=== PATIENT | female | born 2000 | race Two or more races ===

== ENCOUNTER 2024-06-20 18:05 | Outpatient (CLI) | payer MEDICAID, SELFPAY ==
[2024-06-20 18:05] VITALS: BP 98/54; PULSE 72; RESP 16; TEMP 37.1
[2024-06-20 18:16] VITALS: BP 100/56; PULSE 115
[2024-06-20 18:46] VITALS: BP 98/48; PULSE 106
--- NOTE | 2024-06-20 18:58 | XR_ITS ---
Examination: Biophysical profile, ultrasound Date and time of exam: June 20, 2024 1935 hrs. Indications: Diagnosis decreased movement beginning 2 days ago, diagnosis history vaginal discharge and bleeding Technique: Multiple transabdominal sonographic images of the pelvis abdomen obtained. Attention is directed to the breathing movement, gross body movement, amniotic fluid volume and tone. Findings: Amniotic fluid index 16.9 cm Total biophysical profile is 8 of 8. breathing movement is 2. Gross body movement is 2. tone is 2. Qualitative amniotic fluid volume is 2 Impression: Biophysical profile is 8 of 8.
[2024-06-20 19:03] VITALS: BMI 31.8
[2024-06-20 19:16] VITALS: BP 93/50; PULSE 117
[2024-06-20 19:46] VITALS: BP 125/60; PULSE 103
== END 2024-06-20 20:20 | disposition home or self-care (01) ==
LOC: S4S1 18:12 → S4SX 18:15
PROVIDERS: Referring Provider Obstetrics & Gynecology; Visit Provider Obstetrics & Gynecology
DX: O36.8130 Decreased fetal movements, third trimester, not applicable or unspecified (principal); Z3A.35 35 weeks gestation of pregnancy
CPT/HCPCS: 59025; 76819

== ENCOUNTER 2024-07-17 05:40 | Inpatient (IN) | payer MEDICAID, SELFPAY ==
[2024-07-17] VITALS (30 sets, daily range): BP systolic 94–114; BP diastolic 50–81; PULSE 63–91; RESP 12–23; TEMP 36.3–36.9; O2SAT 96–100; BMI 31.0
[2024-07-17] MEDS: RINGERS LACTATED 1000 ML 1,000 ML 100 ML IV (06:15)
[2024-07-17 06:29] LABS: Basophils % (Auto) 1 % (0-2.5); Eosinophils # (Auto) 0.1 Thou/mm3 (0.0-0.5); Eosinophils % (Auto) 2 % (0-10); Hematocrit 28.4 % (36.0-46.0); Hemoglobin 9.1 g/dL (12.0-16.0); Immature Granulocytes % (Auto) 1 % (0-0); Immature Granulocytes Auto 0.04 Thou/mm3 (0.00-0.00); Lymphocytes # (Auto) 2.2 Thou/mm3 (1.0-4.8); Lymphocytes % (Auto) 33 % (10-50); Mean Corpuscular Hemoglobin 26.5 pg (25.0-35.0); Mean Corpuscular Volume 83 fL (80-100); Monocytes # (Auto) 0.4 Thou/mm3 (0.0-0.8); Monocytes % (Auto) 6 % (0-12); Neutrophils # (Auto) 3.9 Thou/mm3 (1.8-7.7); Neutrophils % (Auto) 58 % (37-80); Nucleated Red Blood Cell % 0 /100 WBC (0); Platelet Count 255 Thou/mm3 (140-440); RDW Standard Deviation 51.3 fL (36.4-46.3); Red Blood Count 3.44 Miln/mm3 (4.00-5.20); White Blood Count 6.7 Thou/mm3 (3.6-11.0)
[2024-07-17 06:35] LABS: Amphetamine/Metham Scrn,Ur OB Negative (Negative); Benzoylecgonine Screen, Ur OB Negative (Negative); Opiate Screen,Urine OB Negative (Negative); THC Screen,Urine OB Negative (Negative)
[2024-07-17 07:04] LABS: Syphilis Nonreactive (Nonreactive)
[2024-07-17] MEDS: FAMOTIDINE INJ 10 MG/ML VIAL 2 ML 20 MG IV (07:24)
[2024-07-17] MEDS: ceFAZolin/D5W 2 GM IV 2 GM/100 ML BAG IV (07:24)
[2024-07-17] MEDS: CITRIC ACID/SODIUM CITR 15 ML UDC (BICITRA) 30 ML PO (07:24)
--- NOTE | 2024-07-17 07:32 | PD.LDHP ---
Documentation for date of: 07/17/24 OB Labor/Induct. HPI History of Present Illness : 2 Term pregnancies: 0 pregnancies: 0 Living children: 0 History of Abortions: Spontaneous and Elective: 0 History of sections: No History of : No Date of last menstrual period: 10/11/23 Gestational age based on last menstrual period: 40 History of present illness: 23-year-old 2 para 1-0-0-1 admitted for repeat low-transverse at 39 [id number] . patient denies any contraction, bleeding, leaking. Patient is feeling baby move. Had are with another provider and was seen by me for the last couple of visit. History of Present Dating criteria: LMP confirmed by 2nd trimester US Adequate Care: Yes Labs Labs: Negative: Hepatitis B, HIV, Chlamydia, Gonorrhea and Group Beta Strep Past Medical History Surgical History SURGICAL: Negative Section Meds Home Medications and Allergies Home Medications ?Medication ?Instructions ?Recorded ?Confirmed ?Type vit no.95-ferrous 1 tab PO DAILY 06/28/23 06/20/24 History fumarate 28 mg-folic acid 800 mcg tablet () Allergies Allergy/AdvReac Type Severity Reaction Status Date / Time No Known Allergies Allergy Unknown Unverified 06/20/24 19:06 OB Exam Physical Exam Vital signs: Pulse BP Pulse Ox 88 114/64 100 07/17/24 05:53 07/17/24 05:53 07/17/24 07:09 Constitutional Constitutional: no acute distress Routine HEENT Exam Head: Present normocephalic and atraumatic Eye: Present EOMI and PERRL ENT: Present mucous membranes moist Routine Neck Exam Neck: Present supple and trachea midline Routine Cardiovascular Exam Cardiovascular: Present RRR Routine Abdominal Exam Abdominal: Present soft and normoactive bowel sounds Detailed Labor and Delivery Exam Dilation (cm): Closed Comments: heart tone category 1 Routine Extremities Exam Extremities: Present full ROM Routine Skin Exam Skin: Present intact, dry and warm Routine Neurological Exam Neurological: Present alert, oriented X3 and CN II-XII intact Routine Psychiatric Exam Psychiatric: Present normal affect and normal thought process OB Results Labs 07/17/24 06:07 Labs: Short CBC 07/17/24 Range/Units 06:07 WBC 6.7 (3.6-11.0) Thou/mm3 Hgb 9.1 L (12.0-16.0) g/dL Hct 28.4 L (36.0-46.0) % Plt Count 255 (140-440) Thou/mm3 Impressions Impression: 23-year-old 2 para 1-0-0-1 previous x 1 admitted for repeat low-transverse GTT marcial; Hb 9.1, 2 units on hold anatomy , NIPT wnl OB Assessment & Plan Additional Plan Additional Plan Comment: repeat C section IV antibiotics
--- NOTE | 2024-07-17 08:43 | ESOP_ITS ---
Operative Note - DISTILLATION OPERATOR Procedure Date of procedure: 07/17/24 Procedure Performed: repeat low transverse Csection Indication: previous secvtion x1 anemia Pre-Op diagnosis: same Post-Op diagnosis: same Anesthesia type: Spinal Procedure description: Informed consent was obtained and the patient was taken to the operating room.? Identity was confirmed by double identifiers and she was placed on the operating table.The abdomen and perineum were prepped in the usual sterile fashion and a Cash catheter was placed to continuous drainage.? Sterile drapes were applied.??A Pfannenstiel skin incision was made with a scalpel and carried to the subcutaneous fat up to the rectus fascia.? The rectus fascia was incised on either side of the midline and the incisions were extended bilaterally.? The fascia was gently dissected off the ventral surface of the rectus muscle both superiorly and inferiorly. Carefully a peritioneal window craeted hysterotomy incision made and extended bluntly with finger. Rupture of membranes revealed clear fluid. The baby was found in cephalic position and delivered via vertex. The umbilical cord , was doubly clamped, divided and the was handed over to the waiting team.? placenta delivered by controlled cord traction . The interior of the uterus was now thorougly cleaned of all blood and debris and membranes.?The? hysterotomy was closed using 0 vicryl suture in double layers. Once the repair was completed the hysterotomy was inspected, was noted to be adequately hemostatic . Muscle oozing stopped by bovie. The rectus fascia was repaired using Vicry 0 in a running fashion.? The subcutaneous layer was now, approximated with 3-0 vicryl in double layers.? All bleeding points were cauterized using the Bovie.?The skin was closed using 4-0 Monocryl in a subcuticular fashion.? The skin was cleaned and a sterile dressing was applied. The patient was now undraped, the abdomen and back were thoroughly cleaned and she was now transferred to the recovery room in a stable Estimated blood loss (ml): 400 Surgical staff Operation Date: 07/17/24 07:45 <No data on this case meets the specified criteria> Diagnosis Problem List Completed Was Problem List Reviewed/Reconciled?: Yes
--- NOTE | 2024-07-17 08:53 | OBDSUM_ITS ---
Data (Duran) Data Hx Section: No : 2 Para: 1 Term: 1 : 0 : 0 Delivery Data (Duran) Labor Data ROM Date: 07/17/24 ROM Time: 07:51 Rupture Type: AROM Amniotic Fluid: Clear Delivery Data Labor Onset Stage 1 Date: 07/17/24 Labor Onset Stage 1 Time: 07:51 Labor Onset Stage 2 Date: 07/17/24 Labor Onset Stage 2 Time: 07:51 Delivery Date: 07/17/24 Delivery Time: 07:52 Gestational age (weeks): 39 Gestational age (days): 3 Placenta Delivery Date: 07/17/24 Placenta Delivery Time: 07:52 Delivered by: Marisa Watson Delivery nurse: Deena Wang Other staff at delivery: Nursery Nurse Other staff at delivery: HARDWARE TEST ENGINEER Other staff at delivery: Lip Of Shank Cutter Other staff at delivery: Scrub Other staff at delivery: Lyssa Lee Other staff at delivery: Hasmukh Cristina Other staff at delivery: Dr. Garcia Other staff at delivery: Isauro Dash Delivery Method Delivery: Delivery Type: Repeat Anesthesia Type Primary Anesthesia: Spinal EBL Estimated blood loss (ml): 400 [place] Data (Duran) [place] Data Infant Gender: Male Weight Grams: 4140 1 Minute Total: 9 5 Minute Total: 9
[2024-07-17] MEDS: KETOROLAC INJ 30 MG/ML VIAL IVP ×2 (09:48→20:43)
[2024-07-17 13:32] LABS: Basophils % (Auto) 0 % (0-2.5); Eosinophils % (Auto) 0 % (0-10); Hematocrit 27.7 % (36.0-46.0); Immature Granulocytes % (Auto) 1 % (0-0); Immature Granulocytes Auto 0.12 Thou/mm3 (0.00-0.00); Lymphocytes # (Auto) 0.9 Thou/mm3 (1.0-4.8); Lymphocytes % (Auto) 8 % (10-50); Mean Corpuscular HGB Conc 31.8 g/dl (31.0-37.0); Mean Corpuscular Hemoglobin 26.2 pg (25.0-35.0); Mean Corpuscular Volume 82 fL (80-100); Monocytes # (Auto) 0.2 Thou/mm3 (0.0-0.8); Monocytes % (Auto) 2 % (0-12); Neutrophils # (Auto) 10.8 Thou/mm3 (1.8-7.7); Neutrophils % (Auto) 89 % (37-80); Nucleated Red Blood Cell % 0 /100 WBC (0); Platelet Count 211 Thou/mm3 (140-440); RDW Standard Deviation 50.9 fL (36.4-46.3); Red Blood Count 3.36 Miln/mm3 (4.00-5.20); White Blood Count 12.1 Thou/mm3 (3.6-11.0)
[2024-07-17 13:33] LABS: Hemoglobin 8.8 g/dL (12.0-16.0)
[2024-07-17] MEDS: OXYTOCIN in NS 20 units 20 UNIT/1,000 ML BAG 125 UNIT IV (17:26)
[2024-07-17] MEDS: ACETAMINOPHEN IVPB 1,000 MG/100 ML VIAL 250 MG IV (20:22)
[2024-07-17] MEDS: Milk Of Magnesia Susp 30 ML UDC PO (20:43)
[2024-07-17] MEDS: SIMETHICONE 80 MG CHEW PO (20:43)
--- NOTE | 2024-07-17 21:20 | PD.LDDELS ---
Data (Duran) Data Hx Section: No : 2 Para: 1 Term: 1 : 0 : 0 Delivery Data (Duran) Labor Data ROM Date: 07/17/24 ROM Time: 07:51 Rupture Type: AROM Amniotic Fluid: Clear Delivery Data Labor Onset Stage 1 Date: 07/17/24 Labor Onset Stage 1 Time: 07:51 Labor Onset Stage 2 Date: 07/17/24 Labor Onset Stage 2 Time: 07:51 Delivery Date: 07/17/24 Delivery Time: 07:52 Gestational age (weeks): 36 Gestational age (days): 4 Placenta Delivery Date: 07/17/24 Placenta Delivery Time: 07:52 Delivered by: Marisa Watson Delivery nurse: Deena Wang Other staff at delivery: Nursery Nurse Other staff at delivery: CARDIOTHORACIC ANESTHESIA TECHNICIAN Other staff at delivery: Claims Collector Other staff at delivery: Scrub Other staff at delivery: Lyssa Lee Other staff at delivery: Hasmukh Cristina Other staff at delivery: Dr. Garcia Other staff at delivery: Isauro Dash Delivery Method Delivery: Delivery Type: Repeat Anesthesia Type Primary Anesthesia: Spinal EBL Estimated blood loss (ml): 400 [place] Data (Duran) [place] Data Infant Gender: Male Weight Grams: 4140 1 Minute Total: 9 5 Minute Total: 9
[2024-07-18 00:15] VITALS: BP 91/47; PULSE 70; RESP 18; TEMP 36.6; O2SAT 97
[2024-07-18 04:10] VITALS: BP 94/48; PULSE 81; RESP 18; TEMP 36.7; O2SAT 97
[2024-07-18 07:40] VITALS: BP 98/59; PULSE 62; RESP 14; TEMP 36.4; O2SAT 98
[2024-07-18] MEDS: IBUPROFEN TAB 400 MG TABLET 800 MG PO ×2 (07:43→20:15)
[2024-07-18] MEDS: ACETAMINOPHEN 325 MG TABLET 650 MG PO (11:15)
--- NOTE | 2024-07-18 15:14 | PD.LDPPPRG ---
Subjective Subjective Interval history: Patient denies any pain , no nausea, vomitting . no fever . Hasbeen doing well, baby at bedisde Exam Vital Signs Temp Pulse Resp BP Pulse Ox O2 Del Method 97.5 F 62 14 98/59 L 98 Room Air 07/18/24 07:40 07/18/24 07:40 07/18/24 07:40 07/18/24 07:40 07/18/24 07:40 07/18/24 07:40 Constitutional Constitutional: no acute distress Routine HEENT Exam Head: Present normocephalic and atraumatic Eye: Present EOMI and PERRL ENT: Present mucous membranes moist Routine Neck Exam Neck: Present supple and trachea midline Routine Respiratory Exam Respiratory: Present chest non-tender, lungs clear, normal breath sounds and no resp distress Routine Cardiovascular Exam Cardiovascular: Present RRR Routine Abdominal Exam Abdominal: Present soft and normoactive bowel sounds Routine Extremities Exam Extremities: Present full ROM Routine Skin Exam Skin: Present intact, dry and warm Routine Neurological Exam Neurological: Present alert, oriented X3 and CN II-XII intact Routine Psychiatric Exam Psychiatric: Present normal affect and normal thought process Objective Labs 07/17/24 13:17 Assessment & Plan Assessment Comment Assessment comment: 23 y/o p2, s/p RLTCS, POD#1 VSS Meeting all po milestones Plan Comment Plan Comment: continue care anticipate discharge tomorrow Time Spent With Patient Time: Total time spent is greater than 50% in coordination of care (as documented) at patient's floor/unit and/or counseling patient:
[2024-07-18 16:17] VITALS: BP 96/53; PULSE 84; RESP 16; TEMP 36.7; O2SAT 99
[2024-07-18] MEDS: HYDROcodone/APAP 5/325 TABLET 1 TAB PO (16:31)
[2024-07-18 20:02] VITALS: BP 94/58; PULSE 81; PULSE 88; RESP 16; TEMP 36.7; O2SAT 97
[2024-07-18 20:15] VITALS: TEMP 36.7
[2024-07-19 04:36] VITALS: BP 100/60; PULSE 82; RESP 18; TEMP 36.7; O2SAT 99
[2024-07-19] MEDS: IBUPROFEN TAB 400 MG TABLET 800 MG PO (05:04)
[2024-07-19 08:15] VITALS: BP 105/61; PULSE 75; RESP 18; TEMP 36.7; O2SAT 97
--- NOTE | 2024-07-19 08:20 | PC.LAC ---
Mom states she is still doing well, does not have any pain or any questions at this time. Handout given for the [facility] resource center should they have problems once they get home.
--- NOTE | 2024-07-19 09:03 | PD.LDDS ---
DS: Providers Provider Date of admission: 07/17/24 05:40 Primary care physician: Physician No Primary/Family Admitting Provider: Serafin Carrion MD Attending Provider on Admission: Marisa Watson MD Consults: 07/17/24 07:34 Referral Routine Comment: Attending Provider on DC: Marisa Watson MD Discharging Provider: Marisa Watson MD DS: Diagnosis Problem List Completed Was Problem List Reviewed/Reconciled?: Yes Summary/Hosp Course Brief History: 23-year-old 2 para 2 status post repeat low-transverse has been admitted for 48 hours. Patient has been doing well meeting all her postop milestones including ambulation, passing gas, tolerating oral diet without any nausea vomiting patient denies any fever or vaginal bleeding Peripartum Data Procedures: Procedures Operation Date: 07/17/24 07:45 Actual Procedure Side Surgeon p in OB Marisa Watson MD Status at Discharge Cognitive/behavioral status at discharge: Stable Time Spent with Patient Time attestation: Total time spent providing and/or coordinating discharge services: Exam Vital Signs Temp Pulse Resp BP Pulse Ox O2 Del Method 98.0 F 82 18 100/60 99 Room Air 07/19/24 04:36 07/19/24 04:36 07/19/24 04:36 07/19/24 04:36 07/19/24 04:36 07/19/24 04:36 Constitutional Constitutional: no acute distress Routine HEENT Exam Head: Present normocephalic and atraumatic Eye: Present EOMI and PERRL ENT: Present mucous membranes moist Routine Neck Exam Neck: Present supple and trachea midline Routine Respiratory Exam Respiratory: Present chest non-tender, lungs clear, normal breath sounds and no resp distress Routine Cardiovascular Exam Cardiovascular: Present RRR Routine Abdominal Exam Abdominal: Present soft and normoactive bowel sounds Routine Extremities Exam Extremities: Present full ROM Routine Skin Exam Skin: Present intact, dry and warm Routine Neurological Exam Neurological: Present alert, oriented X3 and CN II-XII intact Routine Psychiatric Exam Psychiatric: Present normal affect and normal thought process Discharge Plan Plan Patient Disposition: HOME (Self Care) Prescriptions/Referrals Prescriptions/Med Rec: New acetaminophen-codeine 300-15 mg tablet 1 tab PO Q12H PRN (Reason: pain) Qty: 14 0RF ibuprofen 800 mg tablet 800 mg PO Q8H PRN (Reason: pain) Qty: 60 0RF No Action PNV cmb#95-ferrous fumarate-FA [] 28 mg iron- 800 mcg tablet 1 tab PO DAILY Patient Comments: JOANN BARON TABLETA POR V A ORAL A DIARIO Referrals: No Primary/Family,Physician [Primary Care Provider] - Patient/Caregiver Discharge Instructions Education Materials: C Section Dc Print Language: [place] Zealander Stand Alone Forms: Emmanuelle Award Info., Patient Portal Info Letter Discharge Order Discharge Orders: Discharge (Routine); Ordered 07/19/24 Ordered By: Marisa Watson Planned Discharge Date 07/19/24
--- NOTE | 2024-07-19 11:05 | PC.LAC ---
Mom states went well overnight, states there is no pain during latch or feed. Has no questions at this time. Did leave hand out for the [facility] if she needs help once she is home.
--- NOTE | 2024-07-19 11:11 | PC.SS ---
BRENNON Ratliff met with the patient Deena regarding a psychosocial rehabilitation counselor referral for having a history of substance use last year during 2023. BRENNON met with the patient [id number] to address reason for referral. The patient appeared alert and oriented to self, place and situation. Father of , [place] at bed side, patient gave verbal consent for FOB to remain present during assessment. [place] observed at bed side, sleeping in bassinet. No concerns noted. The patient informs this is her second born child. Child at home is 1 year old. The patient informs that she lives at home with family and significant other [place] who is father of baby. The patient reports having adequate support in the home and informs she is prepared to assume care of her . The patient reports having the necessary items to care for her child, car seat, diapers, etc. The patient denies any history with CWS. Patient denies having history of mental health or domestic violence. The patient reports being aligned with WIC, SNAP and TANF. Regarding the reason for referral, the patient denies current substance use. Current toxicology report is negative. Patient has history of cocaine use during 2023 on previous visit. The patient was educated on safe substance use, locking substance away out of reach of children and having a sober adjunct sociology professor in the home. Patient verbalized understanding, FOB also verbalized understanding and patient was provided with community resources and explained how services could be accessed. The patient informs she connected to parental services with [facility]. The patient reports she was consistent with care following knowledge of . The patient reports planned combination feeding of by breast feeding and formula for the . The patient informs she will be taking her new born for pediatric care to [facility] as well. The patient reports having adequate support from her mother and FOB to help assume care of . Patient was provided education on PPD and explained about the symptoms. Patient was provided with mental health resources and was explained how services could be accessed if necessary. Updated bed side nurse, no concerns at this time.
== END 2024-07-19 11:50 | disposition home or self-care (01) | DRG 540 ==
LOC: S4SX 05:43 → S4NX 07:58
PROVIDERS: Admitting Provider Obstetrics & Gynecology; Visit Provider Student in an Organized Health Care Education/Training Program
PROC: 10D00Z1 Extraction of Products of Conception, Low, Open Approach (ICD-10-PCS; CPT 59514; principal; 2024-07-17 07:30)
DX: O34.211 Maternal care for low transverse scar from previous cesarean delivery (principal); Z37.0 Single live birth; Z3A.39 39 weeks gestation of pregnancy; O99.02 Anemia complicating childbirth
CPT/HCPCS: 36415; 80307; 85025; 86780; 86850; 86900; 86901; 86923; 94762; J0131; J0689; J1100; J1885; J2274; J2405; J2590; J3490; J7120; A9270; J2270